=== PATIENT | female | born 1995 | race Caucasian/White ===

== ENCOUNTER 2021-06-12 09:43 | Outpatient (CLI) | payer OTHER | END 2021-06-12 11:28 | disposition home or self-care (01) | LOC: GENOP 09:43 | DX: O99.891 Other specified diseases and conditions complicating pregnancy (principal); N89.8 Other specified noninflammatory disorders of vagina; M54.9 Dorsalgia, unspecified; Z3A.27 27 weeks gestation of pregnancy; O32.1XX0 Maternal care for breech presentation, not applicable or unspecified; O44.42 Low lying placenta NOS or without hemorrhage, second trimester | CPT/HCPCS: 83518; G0463 ==

== ENCOUNTER 2021-07-25 05:56 | Outpatient (CLI) | payer OTHER | END 2021-07-25 07:28 | disposition home or self-care (01) | LOC: GENOP 05:56 | DX: O99.891 Other specified diseases and conditions complicating pregnancy (principal); R10.30 Lower abdominal pain, unspecified; O99.513 Diseases of the respiratory system complicating pregnancy, third trimester; O99.613 Diseases of the digestive system complicating pregnancy, third trimester; O99.353 Diseases of the nervous system complicating pregnancy, third trimester; J45.909 Unspecified asthma, uncomplicated; G43.909 Migraine, unspecified, not intractable, without status migrainosus; K21.9 Gastro-esophageal reflux disease without esophagitis; Z3A.34 34 weeks gestation of pregnancy; O99.013 Anemia complicating pregnancy, third trimester; O41.03X0 Oligohydramnios, third trimester, not applicable or unspecified; D50.9 Iron deficiency anemia, unspecified | CPT/HCPCS: 81001; G0463 ==

== ENCOUNTER 2021-08-14 13:25 | Inpatient (IN) | payer OTHER ==
[~2021-08-14] VITALS: Ht 165.1 cm; Wt 111.1 kg
[2021-08-14 14:17] LABS: HEMOGLOBIN 7.9 gm/dl (12.3-15.3); RED BLOOD COUNT 3.68 M/UL (4.00-5.10); WHITE BLOOD COUNT 12.7 K/UL (4.5-11.0)
[2021-08-14] MEDS ORDERED: FLINTSTONES1 EAC1 PO (19:16)
[2021-08-15] MEDS ORDERED: FEROSUL325 MG PO (20:43)
[2021-08-15] MEDS ORDERED: IBUPROFEN600 MG PO (20:43)
[2021-08-15] MEDS ORDERED: DOCUSATE SODIU250 MG PO (20:43)
[2021-08-16 05:56] LABS: HEMOGLOBIN 5.5 gm/dl (12.3-15.3)
[2021-08-16 23:14] LABS: HEMOGLOBIN 7.2 gm/dl (12.3-15.3)
== END 2021-08-17 14:27 | disposition home or self-care (01) | DRG 806 ==
LOC: GENOP 13:25 → OB 13:46
PROVIDERS: ADMIT Obstetrics & Gynecology
PROC: 10E0XZZ Delivery of Products of Conception, External Approach (ICD-10-PCS; principal; 2021-08-15)
PROC: 3E033VJ Introduction of Other Hormone into Peripheral Vein, Percutaneous Approach (ICD-10-PCS; 2021-08-15)
PROC: 3E0DXGC Introduction of Other Therapeutic Substance into Mouth and Pharynx, External Approach (ICD-10-PCS; 2021-08-15)
PROC: 0HQ9XZZ Repair Perineum Skin, External Approach (ICD-10-PCS; 2021-08-15)
PROC: 3E0234Z Introduction of Serum, Toxoid and Vaccine into Muscle, Percutaneous Approach (ICD-10-PCS; 2021-08-15)
PROC: 30233N1 Transfusion of Nonautologous Red Blood Cells into Peripheral Vein, Percutaneous Approach (ICD-10-PCS; 2021-08-16)
DX: O99.02 Anemia complicating childbirth (principal); O41.03X0 Oligohydramnios, third trimester, not applicable or unspecified; Z37.0 Single live birth; D64.9 Anemia, unspecified; Z20.822 Contact with and (suspected) exposure to COVID-19; O13.4 Gestational [pregnancy-induced] hypertension without significant proteinuria, complicating childbirth; Z3A.36 36 weeks gestation of pregnancy; O70.0 First degree perineal laceration during delivery; Z23 Encounter for immunization
CPT/HCPCS: 36415; 81001; 85014; 85018; 85025; 86850; 86900; 86901; 86920; 90471; 90715; C9113; J2405; J2590; J7030; J7040; J7120; P9016

== ENCOUNTER → 2021-11-17 | Outpatient (CLI) | payer OTHER ==
[~2021-11-17] MED LIST: DOCUSATE SODIU250 MG PO; FEROSUL325 MG PO; FLINTSTONES1 EAC1 PO; IBUPROFEN600 MG PO
== END ==
LOC: EMI 13:00
DX: G44.89 Other headache syndrome (principal); H47.10 Unspecified papilledema; J32.4 Chronic pansinusitis
CPT/HCPCS: 70551

== ENCOUNTER → 2022-01-15 | Outpatient (CLI) | payer OTHER | LOC: KOH-I 09:57 | DX: M51.16 Intervertebral disc disorders with radiculopathy, lumbar region (principal) | CPT/HCPCS: 72100 ==